=== PATIENT | male | born 1975 | race Caucasian/White ===

== ENCOUNTER 2017-07-09 09:53 | Emergency (ER) ==
[2017-07-09 10:07] VITALS: BP 167/116; TEMP 98.7; BMI 32.7
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
--- NOTE | 2017-07-09 11:16 | DI ---
EXAM: Three views of the left hand. History: Left hand trauma. Findings: No acute fracture or dislocation. No abnormal calcifications or radiopaque foreign bodies . Joint spaces are preserved. Dorsal soft tissue swelling. Impression: No acute osseous abnormality. Dorsal soft tissue swelling.
--- NOTE | 2017-07-09 11:18 | DI ---
EXAM: Three views of the left wrist. History: Left wrist pain and trauma. Findings: No acute fracture or dislocation. Joint spaces are preserved. No abnormal calcifications or radiopaque foreign bodies. Impression: No acute osseous abnormality.
== END 2017-07-09 11:43 | disposition home or self-care (01) ==
LOC: ED 09:53
DX: S60.512A Abrasion of left hand, initial encounter (principal); R60.0 Localized edema; M79.642 Pain in left hand; W22.8XXA Striking against or struck by other objects, initial encounter; Y99.0 Civilian activity done for income or pay
CPT/HCPCS: 99283